=== PATIENT | male | born 1935 | race Caucasian/White ===

== ENCOUNTER 2019-10-06 13:13 | Emergency (ER) | payer MEDICARE, OTHER ==
--- NOTE | 2019-10-06 13:40 | Emergency Department Record ---
History of Present Illness - General Chief complaint: Edema Stated complaint: RETAINING WATER Time Seen by Provider: 10/06/19 13:24 Source: Patient Mode of Arrival: Ambulatory Limitations: No limitations - History of Present Illness Initial comments: The patient is here due to possibly retaining fluid over the last 2 weeks. The patient has a hx of fluid retention and was taken off his diuretic by his Unit Director 6 weeks ago. Now he is having leg swelling and very mild COMBS with a weight gain. There has been no hx of cough, fever, chills, Cp, SOB or BETSY. MD Complaint: Extremity swelling, Other Onset/Timin -: Week(s) - Related Data Home Medications Medication Instructions Recorded Confirmed Last Taken Amlodipine Besylate [Norvasc] 10 mg PO DAILY 10/06/19 10/06/19 10/06/19 Apixaban [Eliquis] 5 mg PO BID 10/06/19 10/06/19 10/06/19 Benazepril HCl 40 mg PO DAILY 10/06/19 10/06/19 10/06/19 Bimatoprost [Lumigan] 1 drop OP DAILY 10/06/19 10/06/19 10/06/19 Bisoprolol Fumarate 10 mg PO BID 10/06/19 10/06/19 10/06/19 Dofetilide (Tikosyn) 250Mcg 250 mcg PO BID 10/06/19 10/06/19 10/06/19 [Tikosyn] Doxazosin Mesylate [Cardura] 8 mg PO BID 10/06/19 10/06/19 10/06/19 Fluticasone Propionate [Flovent 50 mcg IH BID 10/06/19 10/06/19 10/06/19 Diskus] Glucos Sul 2Kcl/MSM/Chond/C/Mn 1 each PO DAILY 10/06/19 10/06/19 10/06/19 [Glucosamine Chondroitin Cap] Multivitamin [Daily Multiple 1 each PO DAILY 10/06/19 10/06/19 10/06/19 Vitamin] [place]-3/Dha/Epa/Fish Oil [[place]-3 1 each PO DAILY 10/06/19 10/06/19 10/06/19 EC Softgel] Pravastatin Sodium [Pravachol] 40 mg PO DAILY 10/06/19 10/06/19 10/06/19 Allergies Allergy/AdvReac Type Severity Reaction Status Date / Time Iodinated Contrast Media Allergy HIVES Verified 10/06/19 13:36 Review of Systems Constitutional: Denies: Chills, Fever Eyes: Denies: Eye discharge ENT: Denies: Congestion Respiratory: Denies: Cough, Dyspnea, Hemoptysis Cardiovascular: Denies: Chest pain Endocrine: Denies: Fatigue Gastrointestinal: Denies: Nausea Genitourinary: Denies: Dysuria Musculoskeletal: Denies: Arthralgia Skin: Denies: Bruising Physical Exam - General General Appearance: Alert, Oriented x3, Cooperative, No acute distress - Head Head exam: Atraumatic, Normocephalic - Eye Eye exam: Normal appearance - ENT Throat exam: Normal inspection. negative: Tonsillar erythema, Tonsillar exudate - Neck Neck exam: Normal inspection, Full ROM. negative: Tenderness - Respiratory Respiratory exam: Normal lung sounds bilaterally. negative: Respiratory distress - Cardiovascular Cardiovascular Exam: Regular rate, Normal rhythm, Normal heart sounds. negative: Diastolic murmur, Systolic murmur - GI/Abdominal GI/Abdominal exam: Soft, Normal bowel sounds, Other (obese.). negative: Tenderness - Extremities Extremities exam: Normal inspection, Full ROM, Normal capillary refill, Pedal edema (2+ bilaterally.). negative: Tenderness - Neurological Neurological exam: Alert. negative: Motor sensory deficit - Psychiatric Psychiatric exam: negative: Anxious Course Vital Signs 10/06/19 13:26 Temperature 97.4 F L Pulse Rate [ 80 Pulse Ox Probe] Respiratory 20 Rate Blood Pressure 153/81 [Left Arm] Pulse Ox 97 - Reevaluation(s) Reevaluation #1: The patient is doing very well here in the ER and did urinate once. I did discuss the need to restart his Aldactone and to see his heart doctor in 1-2 weeks. 10/06/19 15:25 Medical Decision Making - Data Complexity MDM Data: Labs Ordered and/or Reviewed, X-Ray Ordered and/or Reviewed, EKG Ordered and/or Reviewed - Lab Data Result diagrams: 10/06/19 13:43 10/06/19 13:43 - EKG Data -: EKG Interpreted by Me EKG: Abnormal EKG (AV paced. ) - Radiology Data Radiology results: Report reviewed (CXR: Mild pleural effusions, O/W neg.) Disposition Disposition: Discharge Clinical Impression: Edema Qualifiers: Edema type: unspecified Qualified Code(s): R60.9 - Edema, unspecified Disposition: Home, Self-Care Condition: (2) Stable Instructions: Leg Edema (ED) Additional Instructions: Please restart your Aldactone tomorrow and please see your family doctor or Unit Director in 1-2 weeks for recheck. Return to the ER for any worsening symptoms, pain, fever, chest pain, or trouble breathing. Forms: Patient Portal Access Time of Disposition: 15:26 Quality - Quality Measures Quality Measures: N/A - Blood Pressure Screening View Details: Yes Does Patient Have Any of the Following: Active Dx of HTN Blood Pressure Classification: Pre-Hypertensive BP Reading Systolic Measurement: 153 Diastolic Measurement: 81 Screening for High Blood Pressure: Patient Exclusion, Hx of HTN [G9744]
[2019-10-06 13:52] LABS: ABSOLUTE NEUTROPHIL COUNT 5.61; BASO % 0.3 % (0-6); EOS % 2.3 % (0-6); GRAN % 72.8 % (47-80); HEMOGLOBIN 12.1 gm/dl (14.0-18.0); LYMPH % 13.6 % (16-45); MEAN CELL VOLUME 100.8 fl (81-97); MEAN CORPUSCULAR HGB CONC 31.8 g/dl (32-36); MEAN PLATELET VOLUME 11.4 fl (7.4-10.4); PLATELET COUNT 184 K/uL (130-400); RED BLOOD COUNT 3.77 M/uL (4.40-5.70); RED CELL DISTRIBUTION WIDTH 14.2 % (11.5-14.5); WHITE BLOOD COUNT W/O DIFF 7.7 K/uL (4.2-12.2)
[2019-10-06 14:08] LABS: PARTIAL THROMBOPLASTIN TIME 29.4 SECONDS (24.5-39.1); PROTHROMBIN TIME (PATIENT) 10.7 SECONDS (9.5-12.1)
[2019-10-06 14:09] LABS: BLOOD UREA NITROGEN 20 mg/dL (8-23); CREATININE 1.2 mg/dL (0.7-1.2); EST GLOMERULAR FILTRATION RATE > 60 mL/min
[2019-10-06 14:10] LABS: TOTAL PROTEIN 5.4 g/dL (6.6-8.7)
[2019-10-06 14:14] LABS: ALB/GLOB RATIO 1.8 (1.1-1.8); ALBUMIN 3.5 g/dL (4.0-5.0); ALKALINE PHOSPHATASE 68 U/L (40-129); ALT/SGPT 14 U/L (<41); AST/SGOT 14 U/L (10.0-50.0)
[2019-10-06 14:28] LABS: GLUCOSE,RANDOM 176 mg/dL (74-109)
[2019-10-06] MEDS ORDERED: FUROSEMIDE IV 40MG/4ML VIAL IVP ONE (14:30)
--- NOTE | 2019-10-06 14:44 | RADIOLOGY REPORT ---
EXAMINATION: Two View Chest Radiographs EXAM DATE: 10/06/2019 2:16 PM TECHNIQUE: Frontal and lateral views INDICATION: edema COMPARISON: None ENCOUNTER: Not applicable FINDINGS: Hyperinflation. Small right pleural effusion. No focal airspace consolidation. Upper normal heart siz e. Pulmonary vasculature within normal limits. Right cardiac pacing device with leads in the expected locations of the right atrium and right ventricle. No pneumothorax. IMPRESSION: 1. Small right pleural effusion. 2. Mild COPD. Dictated by: Suhas Osborne DO on 10/06/2019 2:41 PM. .
== END 2019-10-06 15:41 | disposition home or self-care (01) ==
LOC: ER 13:13
DX: R60.0 Localized edema (principal); R06.00 Dyspnea, unspecified; I10 Essential (primary) hypertension; Z79.01 Long term (current) use of anticoagulants
CPT/HCPCS: 71046; 80053; 83880; 84484; 85025; 85610; 85730; 93005; 93010; 96374; 99284; J1940

== ENCOUNTER 2019-10-18 10:23 | Emergency (ER) | payer MEDICARE, OTHER ==
[2019-10-18] MEDS ORDERED: FUROSEMIDE IV 40MG/4ML VIAL IV ONE (11:07)
[2019-10-18 11:41] LABS: ABSOLUTE NEUTROPHIL COUNT 6.11; BASO % 0.2 % (0-6); EOS % 3.3 % (0-6); GRAN % 72.5 % (47-80); HEMATOCRIT 39.6 % (42.0-52.0); HEMOGLOBIN 12.1 gm/dl (14.0-18.0); LYMPH % 11.4 % (16-45); MEAN CELL VOLUME 102.3 fl (81-97); MEAN CORPUSCULAR HGB CONC 30.6 g/dl (32-36); MEAN PLATELET VOLUME 11.5 fl (7.4-10.4); MONO % 12.6 % (0-9); PLATELET COUNT 203 K/uL (130-400); RED BLOOD COUNT 3.87 M/uL (4.40-5.70); WHITE BLOOD COUNT W/O DIFF 8.4 K/uL (4.2-12.2)
[2019-10-18 11:42] LABS: MEAN CORPUSCULAR HEMOGLOBIN 31.2 pg (27-33)
--- NOTE | 2019-10-18 11:45 | Emergency Department Record ---
History of Present Illness - General Chief complaint: Swelling of legs Stated complaint: TERESITA LEG SWELLING Time Seen by Provider: 10/18/19 10:59 Source: Patient Mode of Arrival: Ambulatory Limitations: No limitations - History of Present Illness Initial comments: pt c/o swelling of legs. his hazmat cdl a driver took him off of lasix in august because he was doing so well. since then he has had increased swelling of his legs to the point that they are uncomfortable and weeping. he was here a week ago for the same thing Complaint: Other Onset/Timin -: Week(s) Location: Bilateral, Lower Leg History of Same: No Radiation: None Consistency: Constant Improves with: Nothing Worsens with: Exertion Associated Symptoms: Shortness of breath - Related Data Previous Rx's Medication Instructions Recorded Furosemide [Lasix] 20 mg PO DAILY #10 tablet 10/18/19 Potassium Chloride 10 meq PO DAILY #10 tablet.er 10/18/19 Allergies Allergy/AdvReac Type Severity Reaction Status Date / Time Iodinated Contrast Media Allergy HIVES Verified 10/06/19 13:36 Travel Screening - Travel/Exposure Within Last 30 Days Have you traveled within the last 30 days?: No Review of Systems Reviewed: No additional complaints except as noted below Constitutional: Reports: As per HPI. Denies: Chills, Fever, Malaise, Night sweats, Weakness, Weight change Eyes: Reports: As per HPI. Denies: Eye discharge, Eye pain, Photophobia, Vision change ENT: Reports: As per HPI. Denies: Congestion, Dental pain, Ear pain, Epistaxis, Hearing loss, Throat pain Respiratory: Reports: As per HPI. Denies: Cough, Dyspnea, Hemoptysis, Stridor, Wheezes Cardiovascular: Reports: As per HPI. Denies: Arrhythmia, Chest pain, Dyspnea on exertion, Edema, Murmurs, Orthopnea, Palpitations, Paroxysmal nocturnal dyspnea, Rheumatic Fever, Syncope Endocrine: Reports: As per HPI. Denies: Fatigue, Heat or cold intolerance, Polydipsia, Polyuria Gastrointestinal: Reports: As per HPI. Denies: Abdominal pain, Constipation, Diarrhea, Hematemesis, Hematochezia, Melena, Nausea, Vomiting Genitourinary: Reports: As per HPI. Denies: Dysuria, Frequency, Hematuria, Incontinence, Retention, Testicular pain, Testicular mass, Urgency Musculoskeletal: Reports: As per HPI. Denies: Arthralgia, Back pain, Gout, Joint swelling, Myalgia, Neck pain Skin: Reports: As per HPI. Denies: Bruising, Change in color, Change in hair/nails, Lesions, Pruritus, Rash Neurological: Reports: As per HPI. Denies: Abnormal gait, Confusion, Headache, Numbness, Paresthesias, Seizure, Tingling, Tremors, Vertigo, Weakness Psychiatric: Reports: As per HPI. Denies: Anxiety, Auditory hallucinations, Depression, Homicidal thoughts, Suicidal thoughts, Visual hallucinations Hematological/Lymphatic: Reports: As per HPI. Denies: Anemia, Blood Clots, Easy bleeding, Easy bruising, Swollen glands Past Medical History - SOCIAL HISTORY Smoking Status: Never smoker - RESPIRATORY Hx Respiratory Disorders: No - CARDIOVASCULAR Hx Cardio Disorders: Yes Hx Abnormal EKG: Yes Hx Irregular Heartbeat: Yes Hx Pacemaker/Defib: Yes - NEURO Hx Neuro Disorders: No - GI Hx GI Disorders: No - Hx Genitourinary Disorders: No - ENDOCRINE Hx Endocrine Disorders: No - MUSCULOSKELETAL Hx Musculoskeletal Disorders: No - PSYCH Hx Psych Problems: No - HEMATOLOGY/ONCOLOGY Hx Hematology/Oncology Disorders: No Family Medical History Any Significant Family History?: No Physical Exam - General General Appearance: Alert, Oriented x3, Cooperative, Mild distress - Head Head exam: Normal inspection - Eye Eye exam: Normal appearance, PERRL, EOMI Pupils: Normal accommodation - ENT ENT exam: Normal exam, Mucous membranes moist, Normal external ear exam, Normal orophraynx Ear exam: Normal external inspection. negative: External canal tenderness Nasal Exam: Normal inspection. negative: Discharge, Sinus tenderness Mouth exam: Normal external inspection, Tongue normal Teeth exam: Normal inspection. negative: Dental caries Throat exam: Normal inspection. negative: Tonsillar erythema, Tonsillar exudate - Neck Neck exam: Normal inspection, Full ROM. negative: Tenderness - Respiratory Respiratory exam: Normal lung sounds bilaterally. negative: Respiratory distress - Cardiovascular Cardiovascular Exam: Regular rate, Normal rhythm, Normal heart sounds - GI/Abdominal GI/Abdominal exam: Soft, Normal bowel sounds. negative: Tenderness - Rectal Rectal exam: Deferred - exam: Deferred - Extremities Extremities exam: Normal inspection, Normal capillary refill, Pedal edema (3+), Tenderness - Back Back exam: Reports: Normal inspection, Full ROM. Denies: Muscle spasm, Rash noted, Tenderness - Neurological Neurological exam: Alert, Normal gait, Oriented X3, Reflexes normal - Psychiatric Psychiatric exam: Normal affect, Normal mood - Skin Skin exam: Dry, Intact, Normal color, Warm Course Vital Signs 10/18/19 10:34 Temperature 97.8 F Pulse Rate 85 Respiratory 20 Rate Blood Pressure 135/72 Pulse Ox 96 - Reevaluation(s) Reevaluation #1: 10/18/19 12:47 pt feels better Reevaluation #2: 10/18/19 12:55 pt is sceduled to see hazmat cdl a driver in 2 wks. i am restarting him on low dose lasix and potassium for a short time to try to help his edema Medical Decision Making - Lab Data Result diagrams: 10/18/19 11:20 10/18/19 11:20 Lab Results 10/18/19 Range/Units 11:20 WBC 8.4 (4.2-12.2) K/uL RBC 3.87 L (4.40-5.70) M/uL Hgb 12.1 L (14.0-18.0) gm/dl Hct 39.6 L (42.0-52.0) % MCV 102.3 H (81-97) fl MCH 31.2 (27-33) pg MCHC 30.6 L (32-36) g/dl RDW 14.0 (11.5-14.5) % Plt Count 203 (130-400) K/uL MPV 11.5 H (7.4-10.4) fl Gran % 72.5 (47-80) % Lymphocytes % 11.4 L (16-45) % Monocytes % 12.6 H (0-9) % Eosinophils % 3.3 (0-6) % Basophils % 0.2 (0-6) % Absolute Neutrophils 6.11 Disposition Disposition: Discharge Clinical Impression: CHF (congestive heart failure) Qualifiers: Heart failure type: unspecified Heart failure chronicity: acute on chronic Qualified Code(s): I50.9 - Heart failure, unspecified Disposition: Home, Self-Care Condition: (1) Good Instructions: Leg Edema (ED) Additional Instructions: follow up with hazmat cdl a driver. return sooner if worse. elevate legs Prescriptions: Furosemide [Lasix] 20 mg PO DAILY #10 tablet Potassium Chloride 10 meq PO DAILY #10 tablet.er Forms: Patient Portal Access Quality - Quality Measures Quality Measures: N/A - Blood Pressure Screening Does Patient Have Any of the Following: Active Dx of HTN Blood Pressure Classification: Pre-Hypertensive BP Reading Systolic Measurement: 135 Diastolic Measurement: 72 Screening for High Blood Pressure: Patient Exclusion, Hx of HTN [G9744]
[2019-10-18 11:56] LABS: BLOOD UREA NITROGEN 19 mg/dL (8-23)
[2019-10-18 11:57] LABS: CREATININE 1.1 mg/dL (0.7-1.2); EST GLOMERULAR FILTRATION RATE > 60 mL/min
[2019-10-18 11:59] LABS: GLUCOSE,RANDOM 109 mg/dL (74-109)
--- NOTE | 2019-10-18 12:00 | RADIOLOGY REPORT ---
EXAMINATION: Two View Chest Radiographs EXAM DATE: 10/18/2019 11:41 AM TECHNIQUE: Frontal and lateral views INDICATION: sob. The technologist elicited the history: Bilateral leg edema and difficulty breathing . COMPARISON: Chest radiographs, 10/06/2019. ENCOUNTER: Not applicable FINDINGS: There remains small bilateral pleural effusions, slightly improved from the previous study. No other new/acute findings are noted. Chest CT could be helpful in further evaluation and confirmation of the findings. IMPRESSION: Small bilateral pleural effusions, improving. Mild cardiomegaly with normal-appearing pulmonary vasculature. Mild perihilar peribronchial thickening/bronchitis (acute and/or chronic). Atherosclerosis. Early spondylosis. Bipolar pacemaker, stable lead placement. Dictated by: Lisa Drummnod MD on 10/18/2019 11:56 AM. .
== END 2019-10-18 13:17 | disposition home or self-care (01) ==
LOC: ER 10:23
DX: I50.9 Heart failure, unspecified (principal); R06.02 Shortness of breath; I10 Essential (primary) hypertension; Z95.810 Presence of automatic (implantable) cardiac defibrillator
CPT/HCPCS: 71046; 80048; 83880; 85025; 96374; 99284; J1940